=== PATIENT | female | born 1960 | race Caucasian/White ===

== ENCOUNTER 2019-12-22 06:00 | Outpatient (RCR) | payer MEDICAID, SELFPAY | END 2020-01-03 23:59 | disposition home or self-care (01) | LOC: GPT 06:00 | PROVIDERS: Family Provider Physician Assistant; PCP Physician Assistant; Referring Provider Physician Assistant Surgical; Visit Provider Physician Assistant Surgical | DX: Z47.1 Aftercare following joint replacement surgery (principal); Z96.651 Presence of right artificial knee joint | CPT/HCPCS: 97110; 97116; 97161; G0283 ==

== ENCOUNTER 2020-01-04 06:00 | Outpatient (RCR) | payer MEDICAID, SELFPAY | END 2020-02-03 23:59 | disposition home or self-care (01) | LOC: GPT 06:00 | PROVIDERS: Family Provider Physician Assistant; PCP Physician Assistant; Referring Provider Physician Assistant Surgical; Visit Provider Physician Assistant Surgical | DX: Z47.1 Aftercare following joint replacement surgery (principal); Z96.651 Presence of right artificial knee joint | CPT/HCPCS: 97110; 97112; 97116; 97164; 97530; 97760; G0283 ==

== ENCOUNTER 2020-02-04 06:00 | Outpatient (RCR) | payer MEDICAID, SELFPAY | END 2020-03-04 23:59 | disposition home or self-care (01) | LOC: GPT 06:00 | PROVIDERS: Family Provider Physician Assistant; PCP Physician Assistant; Referring Provider Physician Assistant Surgical; Visit Provider Physician Assistant Surgical | DX: Z47.89 Encounter for other orthopedic aftercare (principal); Z96.651 Presence of right artificial knee joint | CPT/HCPCS: 97110; 97112; 97530; G0283 ==

== ENCOUNTER 2020-09-09 06:00 | Outpatient (RCR) | payer MEDICAID, SELFPAY | END 2020-10-04 23:59 | disposition home or self-care (01) | LOC: GPT 06:00 | PROVIDERS: PCP Physician Assistant; Referring Provider Physician Assistant Surgical; Visit Provider Physician Assistant Surgical | DX: Z47.1 Aftercare following joint replacement surgery (principal); Z96.652 Presence of left artificial knee joint | CPT/HCPCS: 97110; 97161; 97530 ==

== ENCOUNTER → 2021-05-24 15:59 | Outpatient (BNVA) | payer MEDICAID, SELFPAY | PROVIDERS: PCP Physician Assistant; Visit Provider Nurse Practitioner Family | DX: R21 Rash and other nonspecific skin eruption (principal); Z20.822 Contact with and (suspected) exposure to COVID-19 | CPT/HCPCS: 87071; 87635; 87880 ==

== ENCOUNTER → 2021-08-05 07:54 | Outpatient (BNVA) | payer MEDICAID, SELFPAY | PROVIDERS: PCP Physician Assistant; Visit Provider Nurse Practitioner Family | DX: Z12.4 Encounter for screening for malignant neoplasm of cervix (principal) | CPT/HCPCS: 88175 ==

== ENCOUNTER 2022-01-06 07:07 | Outpatient (CLI) | payer MEDICARE, MEDICAID, SELFPAY ==
--- NOTE | 2022-01-06 | NM_ITS ---
WS: [id number] NUCLEAR MEDICINE HIDA SCAN CLINICAL INFORMATION: GALLSTONES TECHNIQUE: Following intravenous administration of 7.8 mCi of technetium 99m mebrofenin, images of th e abdomen were obtained over the course of 60 minutes. Next, gallbladder ejection fraction was determ ined by obtaining preprandial and one-hour postprandial images of the gallbladder following oral rafa stion of Ensure. COMPARISON: None. FINDINGS: Normal hepatic uptake at 5 minutes. Gallbladder is not visualized by 120 minutes. Normal common bile duct and small bowel activity. Findings suspicious for acute cholecystitis. NM/NM hepatobiliary w phar* [id number] IMPRESSION: Gallbladder nonvisualized 120 minutes suspicious for acute cholecystitis. This can be further evaluated with ultrasound. Recommend correlation with biliary fu nction markers
== END 2022-01-06 07:08 | disposition home or self-care (01) ==
LOC: RAD 07:08
PROVIDERS: PCP Family Medicine; Visit Provider Family Medicine
DX: K80.20 Calculus of gallbladder without cholecystitis without obstruction (principal)
CPT/HCPCS: 78227; A9537

== ENCOUNTER → 2022-01-27 09:29 | Outpatient (BNVA) | payer MEDICARE, MEDICAID, SELFPAY | PROVIDERS: PCP Family Medicine; Referring Provider Family Medicine; Visit Provider Obstetrics & Gynecology | DX: R35.0 Frequency of micturition (principal); R39.15 Urgency of urination | CPT/HCPCS: 81000; 87086 ==

== ENCOUNTER 2022-03-14 15:02 | Observation (INO) | payer MEDICARE, MEDICAID, SELFPAY ==
--- NOTE | 2022-02-20 15:13 | SUR.PREOP ---
1500 called pt to do phone pre-op and pt states she is taking phentermine with her last dose of today,dr hickman with anesthesia informed and pt will have to be rescheduled and to be off of this rx for at least 7 days before she can have surgery. call placed to [facility] and spoke with wanda and she stated she would inform dr danielle and call pt when rescheduled
[2022-03-13 11:01] VITALS: BMI 33.6
[2022-03-14] VITALS (15 sets, daily range): BP systolic 118–169; BP diastolic 54–92; PULSE 47–63; RESP 13–18; TEMP 36.5–36.9; O2SAT 96–100
[2022-03-14] MEDS: acetaminophen 1,000 MG/100 ML PIGGYBACK 400 MG IV (08:30)
[2022-03-14] MEDS: sodium chloride 0.9% 1,000 ML 30 ML IV (08:30)
[2022-03-14] MEDS: scopolamine 1.5 Patch 1 PATCH TRANSDERMA (08:42)
[2022-03-14] MEDS: phenazopyridine 100 mg Tablet 200 MG PO ×3 (08:44→21:27)
[2022-03-14] MEDS: gabapentin 300 mg Capsule PO (08:45)
[2022-03-14] MEDS: CELEcoxib 200 mg Capsule 400 MG PO (08:45)
[2022-03-14] MEDS: ketorolac 30 mg/mL INJ IVP ×2 (08:51→21:27)
[2022-03-14 08:54] LABS: Basophils % 0.4 %; Eosinophils # 0.1 10^3/uL (0.0-0.8); Eosinophils % 1.5 %; Hemoglobin 14.9 g/dL (11.5-15.3); Lymphocytes # 3.4 10^3/uL (0.8-4.8); Lymphocytes % 39.4 %; Mean Corpuscular HGB Conc 33.1 g/dL (30.0-36.0); Mean Corpuscular Hemoglobin 29.5 pg (28.0-34.0); Mean Corpuscular Volume 89.1 fl (81-99); Mean Platelet Volume 10.4 fL (7.4-10.4); Monocytes # 0.5 10^3/uL (0.2-0.9); Monocytes % 5.6 %; Neutrophils % 52.6 %; Nucleated Red Blood Cells % 0 %; Platelet Count 254 10^3/cmm (130-400); Red Blood Count 5.05 10^6/uL (4.1-5.3); Red Cell Distribution Width 13.2 % (12.1-15.1); White Blood Count 8.6 10^3/uL (4.0-10.0)
--- NOTE | 2022-03-14 09:07 | ANES.PREANE2 ---
Pre-Anesthetic Assessment Height/Weight: Height 1.6 m Weight 86.183 kg Temp Pulse Resp BP Pulse Ox 97.7 F 61 18 118/81 98 03/14/22 08:17 03/14/22 08:17 03/14/22 08:17 03/14/22 08:17 03/14/22 08:17 Preop Diagnosis: uterine prolapse, anterior repair, possible mid urethral sling Operation Date: 03/14/22 09:45 Proposed Procedures p Laparoscopic Assist Vaginal Hysterectomy [id number]/n81.4(Not Applicable) - Neema Cerda MD s Laparoscopic Salpingo Oophorectomy(Bilateral) - Neema Cerda MD s Anterior Repair(Not Applicable) - Neema Cerda MD s Posterior Repair(Not Applicable) - Neema Cerda MD Familial anesthetic complications: None Was Beta Rosie taken within 24 hours: Yes Was Clonidine taken within 24 hours: N/A Last intake: Intake Last Liquid Date 03/13/22 Last Liquid Time 18:00 Last Solid Date 03/13/22 Last Solid Time 18:00 Social Tobacco and No alcohol Exam alert, oriented x 3, clear to auscultation bilaterally and regular rate & rhythm Airway Submandibular: within normal limits Cervical ROM: within normal limits Mallampati: Class II Dentition: chipped Comments: Comments: Missing posterior teeth Pulmonary None reported CV/HEM Hypertension METS > 4 Uterine prolapse Cystocele Hepatic None reported GI Gastroesophageal Reflux Disease (Welll controlled ) Metabolic None reported Musc/skel None reported Neuropsych Depression RLS Anesthetic Plan ASA status: 2 Anesthesia: Anesthesia Evaluation and General Other: We discussed risk and benefits of general anesthesia including PONV, sore throat (sometimes severe), corneal abrasion, positioning and peripheral nerve injuries, life threatening allergic reaction, post operative ICU admission requiring prolonged intubation, stroke, heart attack, , and rare incidences of recall. Patient consents to proceed with general anesthesia. Risk of > 500 ml blood loss (7ml/kg in children): No Medications/Allergies Home Medications Medication Instructions Recorded Confirmed Last Taken Type ropinirole 5 mg tablet 5 mg PO BEDTIME 05/24/21 03/14/22 03/13/22 History tramadol 50 mg tablet 50 mg PO Q6H PRN 05/24/21 03/14/22 03/13/22 18:00 History atenolol 50 mg tablet 50 mg PO BEDTIME 05/25/21 03/14/22 03/13/22 18:00 History omeprazole 20 mg capsule,delayed 20 mg PO DAILY 05/25/21 03/14/22 03/13/22 18:00 History release sertraline 100 mg tablet 100 mg PO DAILY 05/25/21 03/14/22 03/13/22 History phentermine 37.5 mg capsule 37.5 mg PO DAILY 01/27/22 03/13/22 02/27/22 History Allergies Allergy/AdvReac Type Severity Reaction Status Date / Time No Known Allergies Allergy Verified 03/14/22 08:15 Current Medications Generic Name Dose Route Start Last Admin Trade Name Freq PRN Reason Stop Dose Admin Sodium Chloride 1,000 mls @ 30 mls/hr 03/14/22 08:15 03/14/22 08:30 Sodium Chloride 0.9% IV 03/15/22 08:14 30 mls/hr .Q24H KYLE Administration PFSH Anesthesia Medical History Depression GERD without esophagitis Hypertension Restless legs syndrome Surgical History History of bilateral tubal ligation History of knee replacement Family History Sister Breast cancer had it twice Brother Cancer Unknown Denies family history of Diabetes CAD (coronary artery disease) Clotting disorder Hyperlipidemia Chronic kidney disease (CKD) Bleeding disorder Hypertension Thyroid disease Stroke Data Anesthesia : 03/14/22 08:35 03/14/22 08:35 Short CBC 03/14/22 Range/Units 08:35 WBC 8.6 (4.0-10.0) 10^3/uL Hgb 14.9 (11.5-15.3) g/dL Hct 45.0 (37.0-47.0) % MCV 89.1 (81-99) fl Plt Count 254 (130-400) 10^3/cmm Neut % (Auto) 52.6 % Neut # (Auto) 4.50 (1.8-7.7) 10^3/uL Cardiac Studies: No Data to Display
[2022-03-14 09:11] LABS: Anion Gap 17.2 (5-19); Blood Urea Nitrogen 32 mg/dL (8-23); Calcium 9.6 mg/dL (8.5-10.5); Carbon Dioxide 22 mmol/L (22-29); Chloride 103 mmol/L (98-107); Glomerular Filtration Rate 84.5 mL/min (90-130); Glucose 118 mg/dL (65-115); Osmolality Calculated 294 mOsm/kg (285-295); Potassium 4.2 mmol/L (3.5-5.1); Sodium 138 mmol/L (136-145)
--- NOTE | 2022-03-14 12:22 | W.PM.OPSUD ---
Surgery/Procedure H&P Update DATE OF PROCEDURE: March 14, 2022 DATE H&P PERFORMED: 02/16/22 H&P UPDATE INFORMATION: I have reviewed H&P completed within last 30 days, I have examined patient prior to procedure and No changes to prior documentation PREOP DIAGNOSIS: uterine prolapse, anterior repair, possible mid urethral sling PLANNED PROCEDURE: Operation Date: 03/14/22 09:45 Proposed Procedures p Laparoscopic Assist Vaginal Hysterectomy [id number]/n81.4(Not Applicable) - Neema Cerda MD s Laparoscopic Salpingo Oophorectomy(Bilateral) - Neema Cerda MD s Anterior Repair(Not Applicable) - Neema Cerda MD s Posterior Repair(Not Applicable) - Neema Cerda MD Related Problem List Diagnoses (1) Cystocele: (2) Uterine prolapse:
[2022-03-14] MEDS: vasopressin 20 unit/mL INJ INJECTION (13:31)
--- NOTE | 2022-03-14 14:43 | P.OP_ITS ---
Operative Report Date of procedure: March 14, 2022 Pre-op diagnosis: Preop Diagnosis uterine prolapse, anterior repair, possible mid urethral sling Post-op diagnosis: same Post-op findings: Normal appearing uterus, tubes and ovaries Procedure done: LAVH, BSO, cystoscopy Specimens removed/disposition: uterus, tubes and ovaries to pathology Surgeon: Neema Cerda Anesthesia: General Estimated blood loss (mL): 75 IV fluids (mL): 1,000 Urine output (mL): 300 Complications: none Findings: small uterus. Normal appearing uterus tubes and ovaries Condition: stable Procedure: The patient was taken to the operating room where general anesthesia was administered and found to be adequate. She was prepped and draped in the normal sterile fashion in the dorsal lithotomy position in [facility]. A Lopez catheter was placed. A weighted speculum was placed into the vagina and the anterior lip of the cervix was grasped with a single tooth tenaculum. The Zumi uterine manipulator was placed. The weighted speculum was removed. The gloves were changed and attention was turned to the abdomen. A 5 mm infraumbilical incision was made. Using a 5 mm port with the camera, the port was placed into the abdomen. The abdomen was insufflated. Two low, lateral 5 mm ports were placed on the left and right under direct visualization from the camera. The right tube was grasped and elevated. Using the laparoscopic cautery, the peritoneum was cut inferior to the tube and ovary, using the laparoscopic cautery. This was performed the same way on the left. The uteroovarian ligaments as well as the round ligaments were ligated. Attention was then turned to the vaginal portion of the procedure. The weighted speculum was placed into the vagina. The zumi manipulator was removed. The single tooth tenaculum was removed and replaced with the issac's tenaculum. 10 mL of dilute Pitressin was injected at the vesicovaginal junction. A circumferential incision was made at the vesicovaginal junction and the vaginal mucosa reflected cephalad. The posterior peritoneum was entered sharply with the Metzenbaum scissors and the long weighted speculum replaced. Using the Kishore clamps the uterosacral ligaments were clamped cut and suture- ligated. The anterior peritoneum was entered sharply with the metzenbaum scissors. Then sequentially the uterine arteries and cardinal ligaments were clamped cut and suture-ligated. A single-tooth tenaculum was used to deliver the uterus. The remaining segement of the utero-ovarian ligaments were clamped cut and suture-ligated bilaterally and the specimen was removed. There was good hemostasis with only mild bleeding from the cuff. The peritoneum was closed with a pursestring using 2-0 Vicryl. The vaginal cuff was closed with 0 Vicryl in a running locked pattern incorporating the uterosacral ligaments into the lateral aspects of the vaginal cuff. The Lopez catheter was removed and the cystoscope advanced into the bladder. The patient was given pyridium and bilateral spill was noted. There were no injuries or deficits noted in the bladder. The cystoscope was removed and the Lopez was replaced. Vaginal packing was placed for good hemostasis. The abdomin al incisions were closed with 4-o vicryl. The patient tolerated the procedure well. Sponge lap and needle counts were correct x3. She was taken to the recovery room in stable condition.
[2022-03-14] MEDS: HYDROcodone-acetaminophen 5-325 mg Tablet PO (16:01)
[2022-03-14] MEDS: dextrose 5%-lactated ringers 1,000 ML 125 ML IV (16:02)
[2022-03-14] MEDS: docusate sodium 100 mg Capsule PO (17:59)
[2022-03-14] MEDS: ropinirole 2 mg Tablet 5 MG PO (17:59)
--- NOTE | 2022-03-14 18:14 | PC.NURSE ---
Patient reports she takes her ropinrole 5mg every evening at [id number].
[2022-03-14] MEDS: atenolol 50 mg Tablet PO (21:28)
[2022-03-15] MEDS: dextrose 5%-lactated ringers 1,000 ML 125 ML IV (00:47)
[2022-03-15 03:00] VITALS: BP 119/70; PULSE 52; TEMP 36.8; O2SAT 98
[2022-03-15] MEDS: ketorolac 30 mg/mL INJ IVP (03:58)
[2022-03-15 05:24] LABS: Hematocrit 37.2 % (37.0-47.0); Hemoglobin 12.2 g/dL (11.5-15.3); Mean Corpuscular HGB Conc 32.8 g/dL (30.0-36.0); Mean Corpuscular Hemoglobin 29.5 pg (28.0-34.0); Mean Corpuscular Volume 89.9 fl (81-99); Mean Platelet Volume 10.7 fL (7.4-10.4); Platelet Count 212 10^3/cmm (130-400); Red Blood Count 4.14 10^6/uL (4.1-5.3); Red Cell Distribution Width 13.2 % (12.1-15.1); White Blood Count 9.7 10^3/uL (4.0-10.0)
[2022-03-15 05:59] LABS: Anion Gap 13.6 (5-19); Blood Urea Nitrogen 15 mg/dL (8-23); Calcium 9.1 mg/dL (8.5-10.5); Carbon Dioxide 23 mmol/L (22-29); Chloride 105 mmol/L (98-107); Glucose 221 mg/dL (65-115); Osmolality Calculated 292 mOsm/kg (285-295); Potassium 4.6 mmol/L (3.5-5.1); Sodium 137 mmol/L (136-145)
--- NOTE | 2022-03-15 06:51 | PC.NURSE ---
Orders recieved to pull packing per Dr. Cerda. Packing pulled by this nurse @ [id number]
[2022-03-15 09:00] VITALS: BP 135/75; PULSE 55; RESP 16; TEMP 36.9; O2SAT 98
[2022-03-15] MEDS: docusate sodium 100 mg Capsule PO (09:58)
[2022-03-15] MEDS: sertraline 100 mg Tablet PO (09:59)
[2022-03-15] MEDS: phenazopyridine 100 mg Tablet 200 MG PO (09:59)
[2022-03-15] MEDS: pantoprazole DR 40 mg Tablet PO (09:59)
--- NOTE | 2022-03-15 09:59 | PM.DCS ---
Discharge Providers Date of Admission: 03/14/22 15:02 Date of Discharge: March 15, 2022 Attending Provider at Admission: Neema Cerda MD Attending Provider at Discharge: Neema Cerda MD Primary Care Provider: Feng Chaves Diagnoses at Discharge Discharge Diagnosis (1) Cystocele: Status: Acute (2) Uterine prolapse: Status: Acute Reason for Visit Reason for Visit: uterine prolapse Hospital Course Hospital Course The patient was admitted for surgery. She did well postoperatively and was ready for discharge. Physical Exam Narrative: The patient is doing well this morning Const: COMMON NORMALS: no acute distress, patient oriented x3, no limitations, healthy appearing, alert and well nourished GENERAL APPEARANCE: cooperative, comfortable, well kempt and well developed ORIENTATION/CONSCIOUSNESS: Yes awake, Yes oriented to person, Yes oriented to place and Yes oriented to time Resp: COMMON NORMALS: normal respiratory effort EFFORT & INSPECTION: Yes able to speak in complete sentences GI: COMMON NORMALS: Soft to palpation and non-tender PALPATION: Yes Soft to palpation Extremity: COMMON NORMALS: no calf tenderness Neuro: COMMON NORMALS: patient oriented x3 SENSORIUM/ORIENTATION: Yes alert, Yes oriented to person, Yes oriented to place and Yes oriented to time Psych: APPEARANCE: Yes well kempt Urinary Catheter Management: Lopez: Cath Placed During This Visit: yes, but has since been removed by the nurse Reason for Continuing Indwelling Catheter: Decision to DC Catheter Urinary Catheter Date of Insertion: 03/14/22 Urinary Catheter Time of Insertion: 13:17 Date Urinary Catheter Removed: 03/15/22 Time Urinary Catheter Discontinued: 06:20 Discharge Data Studies Completed and Pending Pending at discharge Category Date Time Status ES surgery / GI images Routine Exams 03/14/22 08:03 Taken Urine Culture Routine Lab 03/14/22 13:25 Received Pathology: Surgical [PTH] Routine Pth 03/14/22 14:30 Received Laboratory Results WBC 9.7 10^3/uL (4.0-10.0) 03/15/22 05:05 RBC 4.14 10^6/uL (4.1-5.3) 03/15/22 05:05 Hgb 12.2 g/dL (11.5-15.3) 03/15/22 05:05 Hct 37.2 % (37.0-47.0) 03/15/22 05:05 MCV 89.9 fl (81-99) 03/15/22 05:05 MCH 29.5 pg (28.0-34.0) 03/15/22 05:05 MCHC 32.8 g/dL (30.0-36.0) 03/15/22 05:05 RDW 13.2 % (12.1-15.1) 03/15/22 05:05 Plt Count 212 10^3/cmm (130-400) 03/15/22 05:05 MPV 10.7 fL (7.4-10.4) H 03/15/22 05:05 Neut % (Auto) 52.6 % 03/14/22 08:35 Lymph % (Auto) 39.4 % 03/14/22 08:35 [place] % (Auto) 5.6 % 03/14/22 08:35 Eos % (Auto) 1.5 % 03/14/22 08:35 Baso % (Auto) 0.4 % 03/14/22 08:35 Neut # (Auto) 4.50 10^3/uL (1.8-7.7) 03/14/22 08:35 Lymph # (Auto) 3.4 10^3/uL (0.8-4.8) 03/14/22 08:35 [place] # (Auto) 0.5 10^3/uL (0.2-0.9) 03/14/22 08:35 Eos # (Auto) 0.1 10^3/uL (0.0-0.8) 03/14/22 08:35 Baso # (Auto) 0.0 10^3/uL (0.0-0.1) 03/14/22 08:35 Nucleated RBC % (auto) 0 % 03/14/22 08:35 Nucleated RBCs # 0.0 /100WBC 03/14/22 08:35 Sodium 137 mmol/L (136-145) 03/15/22 05:05 Potassium 4.6 mmol/L (3.5-5.1) 03/15/22 05:05 Chloride 105 mmol/L (98-107) 03/15/22 05:05 Carbon Dioxide 23 mmol/L (22-29) 03/15/22 05:05 Anion Gap 13.6 (5-19) 03/15/22 05:05 BUN 15 mg/dL (8-23) 03/15/22 05:05 Creatinine 0.6 mg/dL (0.5-0.9) 03/15/22 05:05 GFR Calculation 101.0 mL/min (90-130) 03/15/22 05:05 Glucose 221 mg/dL (65-115) H 03/15/22 05:05 Calculated Osmolality 292 mOsm/kg (285-295) 03/15/22 05:05 Calcium 9.1 mg/dL (8.5-10.5) 03/15/22 05:05 Blood Type O Negative 03/14/22 08:35 Rho(D) Type Negative 03/14/22 08:35 Antibody Screen Negative 03/14/22 08:35 Vitals Last Vital Signs Temp 98.4 F 03/15/22 09:00 Pulse 55 L 03/15/22 09:00 Resp 16 03/15/22 09:00 BP 135/75 03/15/22 09:00 Pulse Ox 98 03/15/22 09:00 Discharge Plan Discharge Patient Disposition: Home Condition: Stable Prescriptions: New ibuprofen 800 mg Tablet 800 mg PO Q8H Qty: 40 0RF hydrocodone-acetaminophen 5-325 mg Tablet 1 tab PO Q4H PRN (Reason: Moderate To Severe Pain) Qty: 30 0RF docusate sodium 100 mg Capsule 100 mg PO BID Qty: 60 0RF Continued ropinirole 5 mg tablet 5 mg PO BEDTIME 0RF tramadol 50 mg tablet 50 mg PO Q6H PRN (Reason: Pain) 0RF omeprazole 20 mg capsule,delayed release(DR/EC) 20 mg PO DAILY 0RF sertraline 100 mg tablet 100 mg PO DAILY 0RF atenolol 50 mg tablet 50 mg PO BEDTIME 0RF phentermine 37.5 mg capsule 37.5 mg PO DAILY 0RF Rx Instructions: must administer 30 minutes before or 1-2 hours after breakfast Discharge Orders: Discharge Order (Routine); Ordered 03/15/22 Ordered By: Neema Cerda Referrals: Neema Cerda MD [Physician] - 03/23/22 2:30 pm (6 week appointment 04/24/22 @ 2:15pm) Patient Instructions: Salpingo-Oophorectomy (DC), Laparoscopic Hysterectomy (DC), Anterior Vaginal Repair (DC), Posterior Vaginal Repair (DC), OB Discharge Report, OB Food/Drug Interaction Guide, Opioid Safety Discharge Attestations Time Spent in Discharge Care*: less than 30 min Quality Metrics Clinical Quality Measures [ No reported AMI, CVA or VTE this stay] Coding Level of Care Code Acute Chg FW DC note Diagnoses Cystocele Uterine prolapse N81.4
[2022-03-15 10:21] VITALS: BP 135/75; PULSE 55; RESP 16; TEMP 36.9; O2SAT 98
== END 2022-03-15 10:19 | disposition home or self-care (01) ==
LOC: OBGYN 15:03
PROVIDERS: Admitting Provider Obstetrics & Gynecology; PCP Family Medicine; Visit Provider Obstetrics & Gynecology
PROC: 0UT9FZZ Resection of Uterus, Via Natural or Artificial Opening With Percutaneous Endoscopic Assistance (ICD-10-PCS; CPT 58552; principal; 2022-03-14 09:45)
PROC: (CPT 58661; 2022-03-14 09:45)
PROC: 0JQC0ZZ Repair Pelvic Region Subcutaneous Tissue and Fascia, Open Approach (ICD-10-PCS; CPT 57240; 2022-03-14 09:45)
PROC: (CPT 57250; 2022-03-14 09:45)
DX: N81.4 Uterovaginal prolapse, unspecified (principal); I10 Essential (primary) hypertension; K21.9 Gastro-esophageal reflux disease without esophagitis; F32.9 Major depressive disorder, single episode, unspecified
CPT/HCPCS: 58552; 36415; 80048; 85025; 85027; 86850; 86900; 87086; 88305; G0378; J0690; J1100; J1885; J2405; J2704; J2710; J3010; J3490; J7030

== ENCOUNTER 2022-11-16 12:05 | Outpatient (CLI) | payer OTHER, MEDICAID, SELFPAY ==
--- NOTE | 2022-11-16 12:18 | US_ITS ---
WS: [email or web address] RIGHT UPPER QUADRANT ULTRASOUND HISTORY: CHOLECYSTITIS COMPARISON: None available. Liver: 16.9 cm in length. Liver is top normal size. Diffuse heterogeneity and coarse echotexture thro ughout the liver. Portal Vein: Normal hepatopetal flow with monophasic waveform. Gallbladder: Gallbladder is contracted. From the juventino hepatis there is an area of shadowing. Finding s are most consistent with a stone filled gallbladder with contraction and mild wall thickening. No a djacent pericholecystic fluid. CBD: 0.9 cm; mildly prominent common bile duct. Pancreas: Normal size and echogenicity. Right kidney: 11.5 cm in length. Normal size and echogenicity. No hydronephrosis or mass. Aorta and IVC: Unremarkable abdominal aorta and IVC. No ascites. US/US abdomen limited [id number] IMPRESSION: 1. Contracted stone filled gallbladder. 2. Common bile duct is mildly dilated at 9 mm. Consider further evaluation by MRCP.
== END 2022-11-16 12:06 | disposition home or self-care (01) ==
LOC: RAD 12:06
PROVIDERS: PCP Family Medicine; Visit Provider Family Medicine
DX: K81.9 Cholecystitis, unspecified (principal)
CPT/HCPCS: 76705

== ENCOUNTER → 2024-09-10 13:30 | Outpatient (BNVA) | payer OTHER, MEDICAID, SELFPAY | PROVIDERS: PCP Family Medicine; Visit Provider Podiatrist Foot & Ankle Surgery | DX: M25.571 Pain in right ankle and joints of right foot; M76.821 Posterior tibial tendinitis, right leg | CPT/HCPCS: 73610; 99203 ==

== ENCOUNTER 2024-09-12 13:07 | Outpatient (CLI) | payer OTHER, MEDICAID, SELFPAY ==
--- NOTE | 2024-09-12 13:08 | XR_ITS ---
WS: [email or web address] SCREENING DEXA SCAN [employer] CLINICAL INFORMATION: POSTMENOPAUSAL COMPARISON: None. FINDINGS: The L1-L4 bone mineral density measures 1.109 g/cm2. This corresponds to a T score score of -0.6 and Z score of 0.3. Left femoral neck bone mineral density measures 0.903 g/cm2. This corresponds to a T score of -0.8 an d Z score of -0.1. Right femoral neck bone mineral density measures 0.910 g/cm2. This corresponds to a T score -0.8of an d Z score of 0.0. Mean femoral neck bone mineral density measures 0.906 g/cm2. This corresponds to a T score of -0.8 an d Z score of -0.1. XR/XR DEXA axial skeleton* [id number] IMPRESSION: Normal bone mineralization. Patient's FRAX calculated 10 year probability for major osteoporotic fracture i s 7.6% and osteoporotic hip fracture is 1.0%.
--- NOTE | 2024-09-12 13:08 | MM_ITS ---
WS: [email or web address] BILATERAL 3D TOMOSYNTHESIS DIGITAL SCREENING MAMMOGRAPHY WITH CAD CLINICAL INFORMATION: SCREENING HISTORY: Screening mammogram. No current complaints. COMPARISON: New baseline TECHNIQUE: Bilateral CC and MLO views. FINDINGS: Scattered fibroglandular densities bilaterally. No suspicious focal mass, asymmetry, calcifications, or architectural distortion. No evidence of malignancy. Incidental punctate and lucent centered calci fications. Secretory calcifications. MM/MM scr tomosynthesis [id number] IMPRESSION: DENSITY: There are scattered areas of fibroglandular density. BI-RADS: 2 - Benign. FOLLOW UP: 1 Year Follow-up Recommend return to annual screening mammography.
== END 2024-09-12 13:08 | disposition home or self-care (01) ==
PROVIDERS: PCP Nurse Practitioner; Visit Provider Nurse Practitioner
DX: Z12.31 Encounter for screening mammogram for malignant neoplasm of breast (principal); Z78.0 Asymptomatic menopausal state
CPT/HCPCS: 77063; 77067; 77080

== ENCOUNTER → 2024-10-22 11:20 | Outpatient (BNVA) | payer OTHER, MEDICAID, SELFPAY | PROVIDERS: PCP Nurse Practitioner; Visit Provider Podiatrist Foot & Ankle Surgery | DX: M76.821 Posterior tibial tendinitis, right leg (principal) | CPT/HCPCS: 99213 ==

== ENCOUNTER 2024-10-22 13:34 | Outpatient (CLI) | payer OTHER, MEDICAID, SELFPAY | END 2024-10-22 13:35 | disposition home or self-care (01) | LOC: SPT 13:35 | PROVIDERS: PCP Nurse Practitioner; Visit Provider Podiatrist Foot & Ankle Surgery | DX: Z46.89 Encounter for fitting and adjustment of other specified devices (principal); M76.829 Posterior tibial tendinitis, unspecified leg; M25.579 Pain in unspecified ankle and joints of unspecified foot | CPT/HCPCS: L3030 ==

== ENCOUNTER 2025-09-18 10:49 | Outpatient (CLI) | payer OTHER, MEDICAID, SELFPAY ==
--- NOTE | 2025-09-18 10:55 | MM_ITS ---
WS: [email or web address] BILATERAL SCREENING DIGITAL TOMOSYNTHESIS MAMMOGRAM WITH CAD HISTORY: SCREENING COMPARISON: 09/12/2024 Bilateral CC and MLO views with tomosynthesis and synthetic mammography submitted. Computer aided detection analyzed. Breast composition: There are scattered areas of fibroglandular density. No suspicious masses, microcalcifications or architectural distortion. Benign calcifications in each breast. MM/MM scr BI tomosynthesis [id number] IMPRESSION: BI-RADS: 2 - Benign. FOLLOW UP: 1 Year Follow-up
== END 2025-09-18 10:50 | disposition home or self-care (01) ==
LOC: RAD 10:50
PROVIDERS: PCP Nurse Practitioner; Visit Provider Nurse Practitioner
DX: Z12.31 Encounter for screening mammogram for malignant neoplasm of breast (principal); R92.323 Mammographic fibroglandular density, bilateral breasts; R92.1 Mammographic calcification found on diagnostic imaging of breast
CPT/HCPCS: 77063; 77067